=== PATIENT | female | born 1970 | race Caucasian/White ===

== ENCOUNTER 2017-01-07 05:33 | Day surgery (SDC) | payer OTHER ==
[2017-01-06 19:27] LABS: #Basophils 0.1 thou/uL (0.0-0.2); #Eosinphils 0.1 thou/uL (0.0-0.7); #Monocytes 0.5 thou/uL (0.11-0.59); %Basophils 0.9 % (0.0-1.0); %Eosinophils 2.1 % (0.0-10.0); %Lymphocytes 45.2 % (21.0-51.0); %Monocytes 7.5 % (0.0-10.0); Hematocrit 39.7 % (36.0-47.0); Mean Platelet Volume 6.3 fL (7.4-10.4); Red Blood Cell (RBC) Count 4.08 mill/uL (4.20-5.40); White Blood Cell (WBC) Count 6.7 thou/uL (4.8-10.8)
--- NOTE | 2017-01-07 05:39 | HP ---
DATE OF ADMISSION: 01/07/2017 REASON FOR ADMISSION: Vulvar carcinoma in situ. SCHEDULED PROCEDURE: Partial vulvectomy. HISTORY OF PRESENT ILLNESS: Ms. Ruiz is a 46-year-old 6, para 1, AB 5, who I first saw in November was referred for a pruritic lesion on the right vulva, had the appearance of a condyloma a nd was excised and found to contain GENNY 3 with positive margins. After healing, we returned to the operating room to complete a wider margin of resection. [employer]GR[employer]HER HISTORY: As noted. No history of dysplasia, status post hysterectomy. PAST MEDICAL HISTORY: None. PAST SURGICAL HISTORY: Hysterectomy and biopsy. SOCIAL HISTORY: Tobacco use. Denies alcohol abuse or drug abuse. FAMILY HISTORY: Noncontributory. REVIEW OF SYSTEMS: Noncontributory. PHYSICAL EXAMINATION: GENERAL: White female, in no acute distress. VITAL SIGNS: 5 feet 1 inch, BMI of 26, blood pressure 104/70. HEENT: Within normal limits. LUNGS: Clear to auscultation bilaterally. HEART: Regular rhythm. BREASTS: Without masses bilaterally. ABDOMEN: Soft, nontender, no rebound or guarding. PELVIC: Vulva, the patient has a well healed area at approximately 6:30 where previous excision was made, apex of the vagina is within normal limits. No adnexal masses noted. EXTREMITIES: Without clubbing, cyanosis, or edema. IMPRESSION: Positive margins, status post excision of condyloma, found to have GENNY 3 after removal. 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
[2017-01-07] MEDS ORDERED: Lidocaine 1% w/Epinephrine 1:200K 30 ML VIAL ONE ×2 (06:43→06:46)
[2017-01-07] MEDS ORDERED: Fentanyl 100 MCG/2 ML VIAL ONE ×2 (06:44→08:28)
[2017-01-07] MEDS ORDERED: Propofol 200 MG/20 ML VIAL ONE (07:40)
[2017-01-07] MEDS ORDERED: Dexamethasone 20 MG/5 ML VIAL ONE (07:40)
[2017-01-07] MEDS ORDERED: Ondansetron HCl/PF 4 MG/2 ML Vial ONE (07:40)
[2017-01-07] MEDS ORDERED: Lidocaine 1% PF 5 ML VIAL ONE (07:40)
[2017-01-07] MEDS ORDERED: Bacitracin Zinc Ointment 30 gm TUBE ONE (08:02)
[2017-01-07] MEDS ORDERED: Ketorolac Tromethamine 30 MG/ML VIAL ONE (08:28)
--- NOTE | 2017-01-07 11:36 | OP ---
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 PROCEDURE: Wide local excision of vulvar intraepithelial neoplasia 3/carcinoma in situ, partial vul vectomy. SURGEON: David Lux M.D. ANESTHESIA: General endotracheal. ESTIMATED BLOOD LOSS: 10 mL. COMPLICATIONS: None. MEDICATIONS: Two grams Ancef. SPECIMENS REMOVED: Vulvar lesion tagged at 12 o'clock. OPERATIVE FINDINGS: 1. Complete excision of previous biopsy field with 5-7 mm margins on each side. 2. Hemostasis at the end of the procedure with good reapproximation of defect. 3. Counts correct at the end of the procedure. DISPOSITION: To the recovery room in good condition. FOLLOWUP: Follow up at [facility] in 8 days for suture removal. DESCRIPTION OF OPERATIVE PROCEDURE: After obtaining operative consent, the patient was taken to the operating room where anesthesia was achieved without difficulty. She was prepped and draped in the usual manner. Area of previous excision in the office was identified using a marking pen an ellipt oid was drawn around this that maintained a margin of 5-8 mm on each side of the previous excision a fernando and corresponded to being lateral of remainder acetowhite area that was noted in the office afte r applying acetic acid. This area was infiltrated with 1% lidocaine with epinephrine 10 mL. Using a 15 blade, this elliptoid area was excised to the level including the dermis and was removed and ta gged at 12 o'clock for specimen orientation. Bovie cautery was used to achieve hemostasis. The de ep dermal tissue was reapproximated using a running continuous 3-0 Monocryl suture to eliminate tens ion across the epidermal suture line. After this was done, a 3-0 Prolene was used in a horizontal m attress manner and interrupted sutures to reapproximate the edges of the epidermis. After this was done, good approximation, minimal tension, and hemostasis was noted. Bacitracin ointment was applie d upon the defect and the patient was awakened, extubated, and taken to the recovery room in good co ndition. She will apply the bacitracin b.i.d. to the affected area and will be seen back in the off ice in 8 days for suture removal.
== END 2017-01-07 09:55 | disposition home or self-care (01) ==
LOC: SDC 05:33
PROVIDERS: ATTEND Obstetrics & Gynecology
PROC: 0UBM0ZZ Excision of Vulva, Open Approach (ICD-10-PCS; principal; 2017-01-07)
DX: N90.89 Other specified noninflammatory disorders of vulva and perineum (principal); F17.200 Nicotine dependence, unspecified, uncomplicated; Z90.710 Acquired absence of both cervix and uterus
CPT/HCPCS: 84703; 85025; 88305; 96374; J1100; J1885; J2001; J2405; J2704; J3010